=== PATIENT | female | born 2000 | race Two or more races ===

== ENCOUNTER 2025-01-02 19:54 | Observation (INO) | payer MEDICAID ==
[~2025-01-02] VITALS: Ht 152.4 cm; Wt 68.0 kg
[2025-01-02 21:17] LABS: Fern Testing Negative
[2025-01-02 21:18] LABS: Urine Protein, UAD Negative (Negative)
[2025-01-02 21:20] LABS: Amphetamine Screen, Urine Neg (NEGATIVE); Barbiturate Scree,Urine Neg (NEGATIVE); Benzodiazephine Screen, Urine Neg (NEGATIVE); Cannabinoid Screen, Urine Neg (NEGATIVE); Cocaine Screen, Urine Neg (NEGATIVE); Opiate Scree,Urine Neg (NEGATIVE); Phencyclidine Screen, Urine Neg (NEGATIVE)
[2025-01-02 21:32] LABS: Vaginal Trichomonas Not Present
[2025-01-02 21:33] LABS: Vaginal Bacteria Moderate; Vaginal Clue Cells None Seen; Vaginal Epithelial Cells Moderate
[2025-01-02] MEDS ORDERED: PREN-96 PO (21:55)
--- NOTE | 2025-01-02 22:20 | DVHDS2 ---
Discharge Summary Date of Admission Jan 02, 2025 at 19:54 Date of Discharge: Jan 02, 2025 Admitting Diagnosis LOF Labs/Diagnostic Data: Laboratory Results Test 01/02/25 20:41 01/02/25 20:39 Urine Color Colorless (Yellow) Urine Clarity Clear (Clear) Urine pH 6.5 (5.0-9.0) Urine Specific [place] 1.009 (1.001-1.035) Urine Protein Negative (Negative) Urine Ketones Negative (Negative) Urine Blood Negative /uL (Negative) Urine Nitrite Negative (Negative) Urine Bilirubin Negative (Negative) Urine Urobilinogen Normal mg/dL (Negative) Urine Leukocyte Esterase Negative /uL (Negative) Urine RBC <1 /hpf (0 - 4) Urine Microscopic WBC 1 /HPF (0-5) Urine Squamous Epithelial Cells Few /hpf (<5) Urine Bacteria Few /hpf (None Seen) Urine Glucose Normal mg/dL (Normal) Urine Opiates Screen Neg (NEGATIVE) Urine Fentanyl Screen Neg (NEGATIVE) Urine Barbiturates Screen Neg (NEGATIVE) Urine Phencyclidine Screen Neg (NEGATIVE) Urine Amphetamines Screen Neg (NEGATIVE) Urine Benzodiazepines Screen Neg (NEGATIVE) Urine Cocaine Screen Neg (NEGATIVE) Urine Cannabinoids Screen Neg (NEGATIVE) Amniotic Fluid Ferning Test Negative Placental Gszga-3-Xuzocyuahkwzt Negative Vaginal WBC (Wet Prep) Moderate Vaginal RBC (Wet Prep) None seen Vaginal Epithelial Cells (Wet Prep) Moderate Vaginal Bacteria (Wet Prep) Moderate Vaginal Trichomonas (Wet Prep) Not present Vaginal Yeast (Wet Prep) None seen Vaginal Clue Cells (Wet Prep) None seen Brief Hx & Hospital Course: Rule out leaking of fluid Operations or Procedures NST BPP Condition at Discharge: Good Final Diagnosis/Problems List No evidence of leaking of fluid reassuring heart tones Discharge Disposition: Home Discharge Instruct/Medications Diet: Regular Activity: Light activity Follow Up/Referral: One week or PRN kick counts she SROM precautions Medications: none Scheduled Vit W/ Ferrous Fumara ( One Daily), 1 TAB PO DAILY, (Reported) Discharge Statement: "Patient was advised to return to the ER or call 911 if any headaches, dizziness, shortness of breath, chest pain, abdominal pain, bleeding, fevers, or worsening of medical condition. Patient was counseled about treatment plan, medications, possible side effects, patientverbalized understanding. All questions were answered to the best of my ability. This discharge took greater then 30 minutes in planning, reviewing documentation, counseling the patient, and discussing with other team members." ASSESSMENT ASSESSMENT Assessment Visit Coding OBGYN Date of Service: Jan 02, 2025 Billing Provider: JEREMY BONE DO [employer] Common Visit Codes: 11330-[id number] INP/OBS CARE(HIGH), 89846-GSM/OBS SAME DATE (LOW), 27888-PRC/OBS SAME DATE (MOD) [employer] Procedure Codes: 77654-60- NON-STRESS TEST JEREMY BONE DO Jan 02, 2025 22:20
== END 2025-01-02 22:16 | disposition home or self-care (01) ==
LOC: LDRP 19:54
PROVIDERS: ADMIT Obstetrics & Gynecology; ATTEND Obstetrics & Gynecology
DX: O42.913 Preterm premature rupture of membranes, unspecified as to length of time between rupture and onset of labor, third trimester (principal); Z79.899 Other long term (current) drug therapy; Z3A.31 31 weeks gestation of pregnancy; Z98.890 Other specified postprocedural states
CPT/HCPCS: 59025; 80307; 81001; 81002; 84112; 87210; 94760; G0378; Q0114